=== PATIENT | male | born 1980 | race Caucasian/White ===

== ENCOUNTER 2016-08-08 03:36 | Emergency (ER) | payer SELFPAY ==
[~2016-08-08] VITALS: Ht 167.6 cm; Wt 65.0 kg
[2016-08-08] MEDS ORDERED: HALOPERIDOL 5 MG INJ ONE (03:43)
[2016-08-08] MEDS ORDERED: DIPHENHYDRAMINE 50 MG INJ ONE (03:43)
[2016-08-08] MEDS ORDERED: LORAZEPAM 2 MG INJ ONE (03:44)
[2016-08-08] MEDS ORDERED: SOD CHLORIDE 0.9% 1,000 ML IV STA (03:50)
[2016-08-08 03:57] VITALS: Ht 167.6 cm; Wt 65.0 kg
[2016-08-08] MEDS ORDERED: LORAZEPAM 2 MG INJ IM ONE (04:00)
[2016-08-08] MEDS ORDERED: DIPHENHYDRAMINE 50 MG INJ IM ONE (04:00)
[2016-08-08] MEDS ORDERED: HALOPERIDOL 5 MG INJ IM ONE (04:00)
[2016-08-08 04:55] LABS: ADD SCAN DIFF NO
[2016-08-08 04:56] LABS: ADD UMIC YES; BASOPHILS % 0.3 % (0.0-2.0); EOSINOPHILS % 0.3 % (0.0-7.0); HEMOGLOBIN 12.8 g/dl (14.0-18.0); LYMPHOCYTES # 0.7 10^3/ul (0.8-2.9); LYMPHOCYTES % 11.5 % (15.0-51.0); MEAN CORPUSCULAR HEMOGLOBIN 29.8 pg (29.0-33.0); MEAN CORPUSCULAR HGB CONC 34.6 g/dl (32.0-37.0); MONOCYTE # 0.6 10^3/ul (0.3-0.9); MONOCYTES % 9.6 % (0.0-11.0); NEUTROPHILS % 78.1 % (39.0-77.0); PLATELET COUNT 216 10^3/UL (140-415); RED CELL DISTRIBUTION WIDTH 13.4 % (11.5-14.5); URINE BILIRUBIN (Dip) NEGATIVE (NEGATIVE); URINE BLOOD (Dip) TRACE (NEGATIVE); URINE COLOR LT. YELLOW (YELLOW); URINE GLUCOSE (Dip) NEGATIVE (NEGATIVE); URINE KETONES (Dip) 15 (NEGATIVE); URINE LEUKOCYTE ESTERASE (Dip) NEGATIVE (NEGATIVE); URINE NITRITE (Dip) NEGATIVE (NEGATIVE); URINE TOTAL PROTEIN (Dip) TRACE (NEGATIVE); URINE UROBILINOGEN (Dip) 1.0 E.U./dL (0.1-1.0); WHITE BLOOD COUNT 6.4 10^3/ul (4.8-10.8)
[2016-08-08 06:01] LABS: BARBITURATES NEGATIVE (NEGATIVE); BENZODIAZEPINES NEGATIVE (NEGATIVE); CANNABINOIDS NEGATIVE (NEGATIVE); COCAINE NEGATIVE (NEGATIVE); OPIATES NEGATIVE (NEGATIVE)
--- NOTE | 2016-08-08 06:04 | ERA ---
ER Documentation Chief Complaint Date/Time DATE: 08/08/16 TIME: 06:03 Chief Complaint ALOC HPI 36-year-old male acting bizarrely. Denies any fevers or chills. Denies nausea vomiting. Denies any other current complaints. Patient seems to have a psychiatric history, but refused to ask questions. ROS All systems reviewed and are negative except as per history of present illness. Allergies Allergies: Coded Allergies: No Known Allergy (Unverified , 08/08/16) PMhx/Soc Smoking Status: Unknown if ever smoked Physical Exam Vitals Vital Signs Date Time Temp Pulse Resp B/P Pulse Ox O2 Delivery O2 Flow Rate FiO2 08/08/16 05:30 98.9 99 12 96/56 100 08/08/16 05:15 96.9 92 16 98/56 100 08/08/16 05:00 99.1 98 16 97/55 100 08/08/16 04:45 97.9 99 20 91/55 100 08/08/16 04:30 98.7 106 22 83/46 100 Room Air 08/08/16 04:30 98.7 105 22 89/45 100 08/08/16 04:15 98.6 106 22 102/58 99 08/08/16 04:00 98.6 118 22 118/99 99 08/08/16 03:57 97.6 133 28 127/72 100 Physical Exam Const: [] Head: Atraumatic Eyes: Normal Conjunctiva ENT: Normal External Ears, Nose and Mouth. Neck: Full range of motion..~ No meningismus. Resp: Clear to auscultation bilaterally Cardio: Regular rate and rhythm, no murmurs Abd: Soft, non tender, non distended. Normal bowel sounds Skin: No petechiae or rashes Back: No midline or flank tenderness Ext: No cyanosis, or edema Neur: Awake and alert Psych: Normal Mood and Affect Result Diagram: 08/08/16 0430 Results 24 hrs Laboratory Tests Test 08/08/16 04:30 White Blood Count 6.410^3/ul Red Blood Count 4.3010^6/ul Hemoglobin 12.8g/dl Hematocrit 37.0% Mean Corpuscular Volume 86.0fl Mean Corpuscular Hemoglobin 29.8pg Mean Corpuscular Hemoglobin Concent 34.6g/dl Red Cell Distribution Width 13.4% Platelet Count 12259^3/UL Mean Platelet Volume 10.0fl Neutrophils % 78.1% Lymphocytes % 11.5% Monocytes % 9.6% Eosinophils % 0.3% Basophils % 0.3% Nucleated Red Blood Cells % 0.0/100WBC Neutrophils # 5.010^3/ul Lymphocytes # 0.710^3/ul Monocytes # 0.610^3/ul Eosinophils # 0.010^3/ul Basophils # 0.010^3/ul Nucleated Red Blood Cells # 0.010^3/ul Urine Color LT. YELLOW Urine Clarity CLEAR Urine pH 6.0 Urine Specific [place] 1.025 Urine Ketones 15 Urine Nitrite NEGATIVE Urine Bilirubin NEGATIVE Urine Urobilinogen 1.0 E.U./dL Urine Leukocyte Esterase NEGATIVE Urine Microscopic RBC Pending Urine Microscopic WBC Pending Urine Hemoglobin TRACE Urine Glucose NEGATIVE% Urine Total Protein TRACE Urine Opiates Screen NEGATIVE Urine Barbiturates NEGATIVE Urine Amphetamines Screen POSITIVE Urine Benzodiazepines Screen NEGATIVE Urine Cocaine Screen NEGATIVE Urine Cannabinoids NEGATIVE Current Medications Medications (Trade) Dose Ordered Sig/Lopez Route PRN Reason Start Time Stop Time Status Last Admin Dose Admin Haloperidol (Haldol) 5 mg ONCE ONCE IM 08/08/16 04:00 08/08/16 04:01 DC 08/08/16 03:57 Lorazepam (Ativan) 2 mg ONCE ONCE IM 08/08/16 04:00 08/08/16 04:01 DC 08/08/16 03:57 Diphenhydramine HCl 50 mg 50 mg ONCE ONCE IM 08/08/16 04:00 08/08/16 04:01 DC 08/08/16 03:57 Sodium Chloride (NS) 1,000 ml @ 1,000 mls/hr Q1H STAT IV 08/08/16 03:50 08/08/16 04:49 DC 08/08/16 04:11 Procedures/MDM Patient's behavioral symptoms have stabilized while in the department. Patient is medically cleared and appropriate for psychiatric evaluation and work up. No e/o neurologic, toxic, infectious, or metabolic cause. Currently pending evaluation by PET team Departure Diagnosis: Primary Impression: Acute psychosis Condition: Stable NARESH DICKSON August 08, 2016 06:04
[2016-08-08 06:05] LABS: BACTERIA,URINE OCCASIONAL; SQUAMOUS EPITHELIAL CELL,UR OCCASIONAL; URINE RBCS 0-2 /HPF (0)
[2016-08-08 06:09] LABS: ACETAMINOPHEN < 10.0 ug/ml (10.0-30.0); ALANINE AMINOTRANSFERASE 52 IU/L (13-69); ALBUMIN 3.7 g/dl (3.3-4.9); ALBUMIN/GLOBULIN RATIO 1.37; ALKALINE PHOSPHATASE 70 IU/L (42-121); ANION GAP 17 (8-16); ASPARTATE AMINO TRANSFERASE 50 IU/L (15-46); BILIRUBIN,INDIRECT 0.6 mg/dl (0-1.1); BILIRUBIN,TOTAL 0.6 mg/dl (0.2-1.3); BLOOD UREA NITROGEN 13 mg/dl (7-20); CALCIUM 8.7 mg/dl (8.4-10.2); CARBON DIOXIDE 23 mmol/L (21-31); CHLORIDE 105 mmol/L (97-110); CREATININE 1.07 mg/dl (0.61-1.24); ETHANOL < 10.0 mg/dl; GLUCOSE 114 mg/dl (70-220); POTASSIUM 3.2 mmol/L (3.5-5.1); SALICYLATE < 1.0 mg/dl (5.0-30.0); SODIUM 142 mmol/L (135-144); TOTAL PROTEIN 6.4 g/dl (6.1-8.1)
--- NOTE | 2016-08-08 11:42 | PSY ---
Date/Time of Note Date/Time of Note DATE: 08/08/16 TIME: 11:41 Psychiatric Subjective Eval Consent Pt consented to telemedicine: Yes Subjective Evaluation Chief Complaint: ALOC History of present illness 36 yo male BIB paramedics due to acting bizarre and aggressively at 10/03 store. Pt is in restraints, refused to sepak to me. Not able to comeplte the eval. Medical history Problems Medical Problems: (1) Acute psychosis Status: Acute Allergies: Coded Allergies: No Known Allergy (Unverified , 08/08/16) Psychiatric Objective Eval Mental Status Examination: Laboratory Results Laboratory Tests Test 08/08/16 04:30 White Blood Count 6.410^3/ul Red Blood Count 4.3010^6/ul Hemoglobin 12.8g/dl Hematocrit 37.0% Mean Corpuscular Volume 86.0fl Mean Corpuscular Hemoglobin 29.8pg Mean Corpuscular Hemoglobin Concent 34.6g/dl Red Cell Distribution Width 13.4% Platelet Count 09682^3/UL Mean Platelet Volume 10.0fl Neutrophils % 78.1% Lymphocytes % 11.5% Monocytes % 9.6% Eosinophils % 0.3% Basophils % 0.3% Nucleated Red Blood Cells % 0.0/100WBC Neutrophils # 5.010^3/ul Lymphocytes # 0.710^3/ul Monocytes # 0.610^3/ul Eosinophils # 0.010^3/ul Basophils # 0.010^3/ul Nucleated Red Blood Cells # 0.010^3/ul Urine Color LT. YELLOW Urine Clarity CLEAR Urine pH 6.0 Urine Specific [place] 1.025 Urine Ketones 15 Urine Nitrite NEGATIVE Urine Bilirubin NEGATIVE Urine Urobilinogen 1.0 E.U./dL Urine Leukocyte Esterase NEGATIVE Urine Microscopic RBC 0-2/HPF Urine Microscopic WBC 0-2/HPF Urine Squamous Epithelial Cells OCCASIONAL Urine Amorphous Urates FEW Urine Bacteria OCCASIONAL Urine Hemoglobin TRACE Urine Glucose NEGATIVE% Urine Total Protein TRACE Sodium Level 142mmol/L Potassium Level 3.2mmol/L Chloride Level 105mmol/L Carbon Dioxide Level 23mmol/L Anion Gap 17 Blood Urea Nitrogen 13mg/dl Creatinine 1.07mg/dl Glucose Level 114mg/dl Calcium Level 8.7mg/dl Total Bilirubin 0.6mg/dl Direct Bilirubin 0.00mg/dl Indirect Bilirubin 0.6mg/dl Aspartate Amino Transf (AST/SGOT) 50IU/L Alanine Aminotransferase (ALT/SGPT) 52IU/L Alkaline Phosphatase 70IU/L Total Protein 6.4g/dl Albumin 3.7g/dl Globulin 2.70g/dl Albumin/Globulin Ratio 1.37 Salicylates Level < 1.0mg/dl Urine Opiates Screen NEGATIVE Acetaminophen Level < 10.0ug/ml Urine Barbiturates NEGATIVE Urine Amphetamines Screen POSITIVE Urine Benzodiazepines Screen NEGATIVE Urine Cocaine Screen NEGATIVE Urine Cannabinoids NEGATIVE Ethyl Alcohol Level < 10.0mg/dl LYNDSEY MACK MD August 08, 2016 11:42
--- NOTE | 2016-08-08 23:27 | QN ---
Documentation Comment Evaluated by telemetry psychiatry. Found to be dischargeable. I agree with this. One patient was informed by a psychiatrist, patient declined he was suicidal. Both a psychiatrist and I discussed this at great length. We both for the patient's malingering. He will be discharged home. NARESH DICKSON. August 08, 2016 23:27
[2016-08-08 23:41] VITALS: BP 112/80; PULSE 83; RESP 15; TEMP 98.9
--- NOTE | 2016-08-08 23:51 | PSY ---
Date/Time of Note Date/Time of Note DATE: 08/08/16 TIME: 23:37 Psychiatric Subjective Eval Consent Pt consented to telemedicine: Yes Subjective Evaluation Patient location: emergency Chief Complaint: ALOC Reason for consult: meth intoxication History of present illness patient is a 36 yo male homeless with PPH Of methamphetamine abuse, brought in to the ER confused and agitated, had to be medicated with haldol and ativan and then refused to talk . Now he is willing to talk very hostile and irritable, states that he has been admitted to psych unit before , denies any past suicidal attempt , denies feeling depressed or anxious , denies any manic or psychotic symptoms. Once i told patient that he will be discharged he said that he was suicidal and he will kill himself if he is discharged . Hospitalization: yes Family History denies Medical history Problems Medical Problems: (1) Acute psychosis Status: Acute Allergies: Coded Allergies: No Known Allergy (Unverified , 08/08/16) Substance Abuse Substance abuse history: Yes (amphetamine ) Prior substance abuse treatmen: No Social History Marital status: single Level of education: hs DPA/Conservatorship: No Occupation/Long Term: unemployed Psychiatric Objective Eval Review of Systems: Review of Systems: Not Applicable Physical Examination: Physical Examination: Applicable Sleep: Insomnia Appetite: Adequate Energy: Adequate Interest: Adequate Mental Status Examination: Appearance: Disheveled Eye Contact: Good Psychomotor Activity: Normal Behavior: Hostile Speech: Clear AFFECT: Depressed Mood: Irritable Though Process: Linear Thought Content: Normal Suicidal: No Homicidal: No On 72 hour hold: No Orientation: x3 Cognition: Alert Insight: Intact Judgement: Intact Attention Span: Intact Laboratory Results Laboratory Tests Test 08/08/16 04:30 White Blood Count 6.410^3/ul Red Blood Count 4.3010^6/ul Hemoglobin 12.8g/dl Hematocrit 37.0% Mean Corpuscular Volume 86.0fl Mean Corpuscular Hemoglobin 29.8pg Mean Corpuscular Hemoglobin Concent 34.6g/dl Red Cell Distribution Width 13.4% Platelet Count 19263^3/UL Mean Platelet Volume 10.0fl Neutrophils % 78.1% Lymphocytes % 11.5% Monocytes % 9.6% Eosinophils % 0.3% Basophils % 0.3% Nucleated Red Blood Cells % 0.0/100WBC Neutrophils # 5.010^3/ul Lymphocytes # 0.710^3/ul Monocytes # 0.610^3/ul Eosinophils # 0.010^3/ul Basophils # 0.010^3/ul Nucleated Red Blood Cells # 0.010^3/ul Urine Color LT. YELLOW Urine Clarity CLEAR Urine pH 6.0 Urine Specific [place] 1.025 Urine Ketones 15 Urine Nitrite NEGATIVE Urine Bilirubin NEGATIVE Urine Urobilinogen 1.0 E.U./dL Urine Leukocyte Esterase NEGATIVE Urine Microscopic RBC 0-2/HPF Urine Microscopic WBC 0-2/HPF Urine Squamous Epithelial Cells OCCASIONAL Urine Amorphous Urates FEW Urine Bacteria OCCASIONAL Urine Hemoglobin TRACE Urine Glucose NEGATIVE% Urine Total Protein TRACE Sodium Level 142mmol/L Potassium Level 3.2mmol/L Chloride Level 105mmol/L Carbon Dioxide Level 23mmol/L Anion Gap 17 Blood Urea Nitrogen 13mg/dl Creatinine 1.07mg/dl Glucose Level 114mg/dl Calcium Level 8.7mg/dl Total Bilirubin 0.6mg/dl Direct Bilirubin 0.00mg/dl Indirect Bilirubin 0.6mg/dl Aspartate Amino Transf (AST/SGOT) 50IU/L Alanine Aminotransferase (ALT/SGPT) 52IU/L Alkaline Phosphatase 70IU/L Total Protein 6.4g/dl Albumin 3.7g/dl Globulin 2.70g/dl Albumin/Globulin Ratio 1.37 Salicylates Level < 1.0mg/dl Urine Opiates Screen NEGATIVE Acetaminophen Level < 10.0ug/ml Urine Barbiturates NEGATIVE Urine Amphetamines Screen POSITIVE Urine Benzodiazepines Screen NEGATIVE Urine Cocaine Screen NEGATIVE Urine Cannabinoids NEGATIVE Ethyl Alcohol Level < 10.0mg/dl Assessment and Plan Assessment/Diagnosis [place] I: amphetamine abuse amphetamine induced psychosis in remission [place] II: deferred [place] III: as per record [place] IV: homeless [place] V: gaf 55 Recommendation/Plan Follow-up/Disposition In my opinion,for this patient, outpatient care is the least restrictive option. Based on available evidence, this condition CAN be safely treated at a lower level of care effective today. Patient is stable without clear and convincing evidence of imminent danger due to mental illness that requires acute inpatient psychiatric care as the least restrictive alternative. please refer patient to outpatient mental health clinic for medication management and pscyhotherapy and drug rehab VIKKI VASQUEZ MD August 08, 2016 23:47
== END 2016-08-08 23:52 | disposition home or self-care (01) ==
LOC: E/R 03:36
DX: F29 Unspecified psychosis not due to a substance or known physiological condition (principal); R40.2142 Coma scale, eyes open, spontaneous, at arrival to emergency department; R40.2252 Coma scale, best verbal response, oriented, at arrival to emergency department; R40.2362 Coma scale, best motor response, obeys commands, at arrival to emergency department
CPT/HCPCS: 36415; 80053; 80306; 80307; 81001; 85025; 93005; 96372; 99284; J1200; J1630; J2060; J7030; P9612; 81003

== ENCOUNTER 2018-09-22 20:08 | Inpatient (IN) | payer MEDICAID ==
[~2018-09-22] VITALS: Ht 170.2 cm; Wt 88.3 kg
[2018-09-22] MEDS ORDERED: KETOROLAC 15 MG INJ IV STA (21:00)
[2018-09-22] MEDS ORDERED: SOD CHLORIDE 0.9% 1,000 ML IV ONE (21:00)
[2018-09-22] MEDS ORDERED: PIPER-TAZO 3.375 GM IV (PMX) 100 ML IVPB ONE (21:00)
[2018-09-22] MEDS ORDERED: VANCOMYCIN 1 GM (PMX) 250 ML IVPB ONE (21:00)
[2018-09-22] MEDS ORDERED: SOD CHLORIDE 0.9% 100 ML ONE (22:06)
[2018-09-22] MEDS ORDERED: IOHEXOL 300MG/ML 150 ML BTL ONE (22:06)
[2018-09-22] MEDS ORDERED: IBUP-1542 PO (23:02)
[2018-09-22] MEDS ORDERED: CLIN300C10 PO (23:02)
--- NOTE | 2018-09-23 00:28 | ERD ---
ER Documentation Chief Complaint Chief Complaint R THIGH PAIN X'S 2 DAYS. SEEN FOR SAME 2 DAYS AGO HPI 38-year-old male presents to the emergency department with complaints of redness and swelling and pain to his right buttock for the past 2 days. He states he went to [facility] yesterday and was prescribed antibiotics but has not been taking them. Symptoms have overall worsened. Reports 9/10 pain which is constant and worse with walking. He denies any fevers, nausea, vomiting, diarrhea, or other symptoms at this time. ROS All systems reviewed and are negative except as per history of present illness. Medications Home Meds Active Scripts Ibuprofen* (Motrin*) 600 Mg Tab, 600 MG PO Q6, #30 TAB Prov:NARESH HAYES PA-C 09/22/18 Clindamycin Hcl* (Clindamycin Hcl*) 300 Mg Capsule, 300 MG PO TID for 10 Days, CAP Prov:NARESH HAYES PA-C 09/22/18 Allergies Allergies: Coded Allergies: diphenhydramine (Verified Allergy, Unknown, 09/22/18) PMhx/Soc Medical and Surgical Hx: pt denies Medical Hx, pt denies Surgical Hx Hx Alcohol Use: No (denies) Hx Substance Use: No (denies) Hx Tobacco Use: No (denies) Smoking Status: Never smoker FmHx Family History: No diabetes Physical Exam Vitals Vital Signs Date Temp Pulse Resp B/P (MAP) Pulse Ox O2 O2 Flow FiO2 Time Delivery Rate 09/22/18 99.6 94 16 133/79 96 20:10 (97) Physical Exam Const: No acute distress Head: Atraumatic Eyes: Normal Conjunctiva ENT: Normal External Ears, Nose and Mouth. Neck: Full range of motion. No meningismus. Resp: Clear to auscultation bilaterally Cardio: Regular rate and rhythm, no murmurs Skin: Significant erythema and induration noted to the left buttock extending into the left hip. Patient has tenderness palpation and warmth of the area. There is no lymphatic streaking. No necrosis noted. No crepitus on palpation. Ext: No cyanosis, or edema Neur: Awake and alert Psych: Normal Mood and Affect Result Diagram: 09/22/18210809/22/182108 Results 24 hrs Laboratory Tests Test 09/22/18 21:09 White Blood Count 7.0 10^3/ul Red Blood Count 3.92 10^6/ul Hemoglobin 11.5 g/dl Hematocrit 33.3 % Mean Corpuscular Volume 84.9 fl Mean Corpuscular Hemoglobin 29.3 pg Mean Corpuscular Hemoglobin Concent 34.5 g/dl Red Cell Distribution Width 13.1 % Platelet Count 179 10^3/UL Mean Platelet Volume 10.0 fl Immature Granulocytes % 0.100 % Neutrophils % 58.9 % Lymphocytes % 26.9 % Monocytes % 10.9 % Eosinophils % 2.9 % Basophils % 0.3 % Nucleated Red Blood Cells % 0.0 /100WBC Immature Granulocytes # 0.010 10^3/ul Neutrophils # 4.1 10^3/ul Lymphocytes # 1.9 10^3/ul Monocytes # 0.8 10^3/ul Eosinophils # 0.2 10^3/ul Basophils # 0.0 10^3/ul Nucleated Red Blood Cells # 0.0 10^3/ul Sodium Level 140 mmol/L Potassium Level 3.4 mmol/L Chloride Level 105 mmol/L Carbon Dioxide Level 29 mmol/L Anion Gap 6 Blood Urea Nitrogen 19 mg/dl Creatinine 0.83 mg/dl Est Glomerular Filtrat Rate mL/min > 60 mL/min Glucose Level 125 mg/dl Calcium Level 7.9 mg/dl Total Bilirubin 0.5 mg/dl Direct Bilirubin 0.00 mg/dl Indirect Bilirubin 0.5 mg/dl Aspartate Amino Transf (AST/SGOT) 500 IU/L Alanine Aminotransferase (ALT/SGPT) 180 IU/L Alkaline Phosphatase 57 IU/L Total Protein 6.3 g/dl Albumin 3.4 g/dl Globulin 2.90 g/dl Albumin/Globulin Ratio 1.17 Current Medications Medications Dose Sig/Lopez Start Time Status Last (Trade) Ordered Route PRN Stop Time Admin Dose Reason Admin Sodium 1,000 ml @ Q1H ONCE 09/22/18 DC 09/22/18 Chloride 1,000 mls/hr IV 21:00 21:35 09/22/18 21:59 Piperacillin 100 ml @ ONCE ONCE 09/22/18 DC 09/22/18 Sod/ 200 mls/hr IVPB 21:00 21:35 Tazobactam 09/22/18 21:29 Sod Vancomycin 250 ml @ ONCE ONCE 09/22/18 DC 6/30/19 HCl 125 mls/hr IVPB 21:00 22:23 09/22/18 22:59 Ketorolac 15 mg ONCE STAT 09/22/18 DC 09/22/18 Tromethamine IV 21:00 21:35 (Toradol) 09/22/18 21:02 IV Flush 10 ml STK-MED 09/22/18 DC 09/22/18 (NS 10 ml) ONCE .ROUTE 22: 22:17 09/22/18 22:07 Sodium 100 ml @ ud STK-MED 09/22/18 DC 09/22/18 Chloride ONCE .ROUTE 22: 22:18 09/22/18 22:07 Iohexol 150 ml STK-MED 09/22/18 DC 09/22/18 (Omnipaque ONCE .ROUTE : 22: 300mg/ ml) 09/22/18 22:07 Procedures/MDM 38-year-old male presenting to the emergency department with extensive cellulitis with induration of the right buttock extending to the right hip. Patient is homeless and is unable to receive his prescriptions as an outpatient. Patient was immediately placed on a stretcher and IV Zosyn, IV vancomycin, IV Toradol was administered. There is no evidence to suggest sepsis although due to patient's history and physical examination, we will admit for IV antibiotics. I did speak to the attending ED physician, Dr. Chinmay Cole, who is in agreement with plan for admission and further facilitated the admission process. My medical decision making was shared with the patient and he understands and agrees with plan for admission. Departure Diagnosis: Primary Impression: Abscess of left buttock Condition: Fair Patient Instructions: Cellulitis Referrals: [facility] YOU HAVE RECEIVED A MEDICAL SCREENING EXAM AND THE RESULTS INDICATE THAT YOU DO NOT HAVE A CONDITION THAT REQUIRES URGENT TREATMENT IN THE EMERGENCY DEPARTMENT. FURTHER EVALUATION AND TREATMENT OF YOUR CONDITION CAN WAIT UNTIL YOU ARE SEEN IN YOUR DOCTORS OFFICE WITHIN THE NEXT 1-2 DAYS. IT IS YOUR RESPONSIBILITY TO MAKE AN APPOINTMENT FOR FOLOW-UP CARE. IF YOU HAVE A PRIMARY DOCTOR --you should call your primary doctor and schedule an appointment IF YOU DO NOT HAVE A PRIMARY DOCTOR YOU CAN CALL OUR PHYSICIAN REFERRAL HOTLINE AT IF YOU CAN NOT AFFORD TO SEE A PHYSICIAN YOU CAN CHOSE FROM THE FOLLOWING COUNTS INCLUDE 234 BEDS AT THE [facility] [address] [place] [facility] [address] [facility] [address] [facility] [address] [facility]. [facility] [address] [facility]. [facility] [address] Additional Instructions: Call your primary care doctor TOMORROW for an appointment during the next 1-2 days.See the doctor sooner or return here if your condition worsens before your appointment time. NARESH HAYES PA-C Sep 23, 2018 00:28
--- NOTE | 2018-09-23 00:33 | HP ---
Date/Time of Note Date/Time of Note DATE: 09/23/18 TIME: 00:33 Assessment/Plan VTE Prophylaxis SCD applied (from Nsg): Yes SCD contraindicated: low risk/ambulating Pharmacological prophylaxis: NA/contraindicated Pharm contraindication: low risk/ambulating Lines/Catheters IV Catheter Type (from Nrsg): Saline Lock Assessment/Plan Hospital Course This is a 38-year male being admitted to the [facility] floor for: #1 buttock cellulitis: Vancomycin IV per pharmacy. Etiology of this is unknown, will check urine drug screen. CT of the pelvis was performed that did not show any signs of underlying abscess. Monitor closely. Social work/case management consult to assist with p.o. antibiotics prescription prior to discharge #2 transaminitis: Patient denies history of drug use or ethanol use. Will check urine drug screen, ethanol level. Will check right upper quadrant ultrasound. Check hepatitis panel. #3 normocytic anemia: We will check iron stores #4 DVT GI prophylaxis: SCDs, no GI prophylaxis indicated Further treatment strategy will be implemented as per the clinical course. Result Diagram: 09/22/18210809/22/182108 Results 24hrs Laboratory Tests Test 09/22/18 21:09 White Blood Count 7.0 Red Blood Count 3.92 L Hemoglobin 11.5 L Hematocrit 33.3 L Mean Corpuscular Volume 84.9 Mean Corpuscular Hemoglobin 29.3 Mean Corpuscular Hemoglobin Concent 34.5 Red Cell Distribution Width 13.1 Platelet Count 179 Mean Platelet Volume 10.0 Immature Granulocytes % 0.100 Neutrophils % 58.9 Lymphocytes % 26.9 Monocytes % 10.9 Eosinophils % 2.9 Basophils % 0.3 Nucleated Red Blood Cells % 0.0 Immature Granulocytes # 0.010 Neutrophils # 4.1 Lymphocytes # 1.9 Monocytes # 0.8 Eosinophils # 0.2 Basophils # 0.0 Nucleated Red Blood Cells # 0.0 Sodium Level 140 Potassium Level 3.4 L Chloride Level 105 Carbon Dioxide Level 29 Anion Gap 6 Blood Urea Nitrogen 19 Creatinine 0.83 Est Glomerular Filtrat Rate mL/min > 60 Glucose Level 125 Calcium Level 7.9 L Total Bilirubin 0.5 Direct Bilirubin 0.00 Indirect Bilirubin 0.5 Aspartate Amino Transf (AST/SGOT) 500 H Alanine Aminotransferase (ALT/SGPT) 180 H Alkaline Phosphatase 57 Total Protein 6.3 Albumin 3.4 Globulin 2.90 Albumin/Globulin Ratio 1.17 HPI/ROS Admit Date/Time Admit Date/Time Hx of Present Illness Chief complaint: Swelling and redness of the right buttock This is a 38-year-old apparently homeless male presents to the emergency department with complaints of redness and swelling and pain to his right buttock for the past 2 days. He states he went to [facility] yesterday and was prescribed antibiotics but apparently was unable to get them filled due to him being homeless. Symptoms have overall worsened. Reports 9/10 pain which is constant and worse with walking. He denies any fevers, nausea, vomiting, diarrhea, or other symptoms at this time. Allergies: Benadryl Medications: None ROS Const: As per HPI Eyes : No pain discharge or redness or change in visual acuity ENT: No pain, sore throat, congestion, congestion, dysphagia or discharge Respiratory: No shortness of breath, cough, sputum, wheezing, or pleuritic pain Cardiovascular: No chest pain, palpitation, PND, or edema GI : no change in appetite, abdominal pain, nausea, vomiting, diarrhea, constip ation, or change in the color his stool Genitourinary: As per HPI Musculoskeletal: No joint pain, back pain, neck pain, restricted range of motion in neck or joints Skin: As per HPI Neuro: No headache, dizziness, syncope, seizure, focal weakness Endocrine: No polyuria, polydipsia, temperature intolerance Psych: No hallucination, depression, anxiety or suicidal ideation PMH/Family/Social Past Medical History Medical History: no pertinent history Coded Allergies: diphenhydramine (Verified Allergy, Unknown, 09/22/18) Past Surgical History Past Surgical Hx: no surgical history Family History Significant Family History: no pertinent family hx Social History Alcohol Use: none Smoking Status: Never smoker Drug Use: none Exam/Review of Systems Vital Signs Vitals Vital Signs Date Temp Pulse Resp B/P (MAP) Pulse Ox O2 O2 Flow FiO2 Time Delivery Rate 09/22/18 99.6 94 16 133/79 96 20:10 (97) Exam Exam General: Patient is currently lying in bed in no acute distress HEENT: Atraumatic, normocephalic. The pupils are equal, round and reactive. Extraocular motor are intact Neck: Supple with full range of motion. No rigidity or meningismus Chest: Nontender Lungs: Clear to auscultation bilaterally no crackles rales or wheezing Heart: Normal S1-S2, Regular rhythm and rate. No murmur, S3, or S4 Abdomen: Soft , nontender, nondistended , bowel sounds are present. No guarding no rebound tenderness , No masses or organomegaly. No costovertebral temporal angle mass Extremities: Normal to inspection, no edema no cyanosis Skin: Right buttock area of induration, swelling and warmth noted. No fluctuance noted. Multiple tattoos Neurologic: Normal mental status, speech normal, cranial nerves II through XII are intact, motor and sensory are intact, Additional Comments PROCEDURE: CT Pelvis with contrast. CLINICAL INDICATION: Left buttock pain, possible abscess TECHNIQUE: CT scan of the pelvis was performed on a multi-detector high- resolution CT scanner following intravenous infusion of 100 cc of Omnipaque-300. Coronal and sagittal reformatted images were obtained from the axial source images. Images were reviewed on a high-resolution PACS workstation. The total exam CTDI equals number mGy and the total exam DLP equals number mGy-cm. DICOM images are available. 3-D reconstructions were not performed on the r adiologist's workstation and evaluated for fractures. One or more of the following dose reduction techniques were utilized: 1.) Automated exposure control 2.) Adjustment of the mA +/- kV according to patient's size 3.) Use of iterative reconstruction technique. COMPARISON: None. FINDINGS: Bony structures : No clinically significant abnormalities. Pelvic colon: Normal in caliber and course. No evidence of inflammatory change. Pelvic small bowel: Normal in caliber and course. Urinary bladder: Normal in size and contour without visible wall thickening. Reproductive structures: Unremarkable. Vascular structures: Unremarkable. Superficial structures: There is extensive subcutaneous edema or bruising along the lateral right thigh and buttock. No focal abnormal fluid collection is evident IMPRESSION: 1. Bruising or edema in the subcutaneous adipose tissue of the lateral right thigh and hip, without evidence of focal abscess at this location or elsewhere around the pelvis. 2. Otherwise unremarkable pelvis. RPTAT:AAJJ Physician Norma Date Time Electronically viewed and signed by Physician Norma on 09/22/2018 22:44 GW/ CC: NARESH HAYES PA-C [id number] SU SWANSON Sep 23, 2018 00:33
[2018-09-23] MEDS ORDERED: DOCUSATE SODIUM 100 MG CAP PO PRN (01:00)
[2018-09-23] MEDS ORDERED: BISACODYL (EC) 5 MG TAB PO PRN (01:00)
[2018-09-23] MEDS ORDERED: VANCOMYCIN IV PER PHARMACY XX SCH (01:00)
[2018-09-23] MEDS ORDERED: ONDANSETRON 4 MG INJ IV PRN (01:00)
[2018-09-23] MEDS ORDERED: NACL 0.9% 3 ML SYG IV SCH (01:00)
[2018-09-23 01:01] VITALS: Ht 170.2 cm; Wt 88.3 kg
[2018-09-23 01:09] VITALS: BP 137/67; PULSE 90; RESP 18
[2018-09-23] MEDS: VANCOMYCIN 1 GM 250 ML IVPB SCH ×3 (05:52→21:37)
[2018-09-23 07:48] VITALS: BP 97/59; PULSE 77; RESP 20
[2018-09-23] MEDS: HYDROCODONE/APAP (5/325) TAB PO PRN ×3 (09:09→21:36)
[2018-09-23] MEDS: ACETAMINOPHEN 325 MG TAB PO PRN (11:45)
[2018-09-23 14:37] VITALS: BP 119/64; RESP 20
--- NOTE | 2018-09-23 15:03 | PN ---
Date/Time of Note Date/Time of Note DATE: 09/23/18 TIME: 14:58 Assessment/Plan VTE Prophylaxis Risk score (from [facility])>0 risk: 1 SCD applied (from [facility]): Yes Pharmacological prophylaxis: NA/contraindicated Pharm contraindication: low risk/ambulating Lines/Catheters IV C[facility]ter Type (from [facility] Saline Lock Assessment/Plan Hospital Course Assessment/Plan: 1. Buttock Cellulitis. - continue on abx. awaiting wound care. -Awaiting wound care consult. - CT of the pelvis was performed that did not show any signs of underlying abscess. - Patient reportedly did not receive abx from his previous hospital. electrical linesworker to follow. 2. Transaminitis. - Monitor trend. Patient noted with Hep Bs antibody (+) 3. Anemia. - Iron panel pending. Monitor H&H Discussed POC with Dr. Osman Result Diagram: 09/22/18210809/22/182108 Results 24hrs Laboratory Tests Test 09/22/18 21:09 09/23/18 05:12 White Blood Count 7.0 Red Blood Count 3.92 L Hemoglobin 11.5 L Hematocrit 33.3 L Mean Corpuscular Volume 84.9 Mean Corpuscular Hemoglobin 29.3 Mean Corpuscular Hemoglobin Concent 34.5 Red Cell Distribution Width 13.1 Platelet Count 179 Mean Platelet Volume 10.0 Immature Granulocytes % 0.100 Neutrophils % 58.9 Lymphocytes % 26.9 Monocytes % 10.9 Eosinophils % 2.9 Basophils % 0.3 Nucleated Red Blood Cells % 0.0 Immature Granulocytes # 0.010 Neutrophils # 4.1 Lymphocytes # 1.9 Monocytes # 0.8 Eosinophils # 0.2 Basophils # 0.0 Nucleated Red Blood Cells # 0.0 Sodium Level 140 Potassium Level 3.4 L Chloride Level 105 Carbon Dioxide Level 29 Anion Gap 6 Blood Urea Nitrogen 19 Creatinine 0.83 Est Glomerular Filtrat Rate mL/min > 60 Glucose Level 125 Calcium Level 7.9 L Total Bilirubin 0.5 Direct Bilirubin 0.00 Indirect Bilirubin 0.5 Aspartate Amino Transf (AST/SGOT) 500 H Alanine Aminotransferase (ALT/SGPT) 180 H Alkaline Phosphatase 57 Total Protein 6.3 Albumin 3.4 Globulin 2.90 Albumin/Globulin Ratio 1.17 Ethyl Alcohol Level < 10.0 H Hepatitis B Surface Antigen NEGATIVE Hepatitis B Surface Antibody POSITIVE H Hepatitis B Core Total Antibody NEGATIVE Hepatitis C Antibody NEGATIVE Subjective 24 Hr Interval Summary Free Text/Dictation He reports having some right buttock pain. Reports minimal drainage at that area. Exam/Review of Systems Exam Vitals Vital Signs Date Temp Pulse Resp B/P (MAP) Pulse Ox O2 O2 Flow FiO2 Time Delivery Rate 09/23/18 98.3 77 20 97/59 (72) 97 Room Air 07:48 Constitutional: alert, oriented Psych: nl mood/affect Head: normocephalic Neck: supple, non-tender Respiratory: clear to auscultation Cardiovascular: regular rate and rhythm Gastrointestinal: soft, non-tender Neurological: MEAT CURER II-XII intact, nl mental status, nl speech Skin: other (right buttock skin tear and redness/swelling ) Results Results 24hrs Laboratory Tests Test 09/22/18 21:09 09/23/18 05:12 White Blood Count 7.0 Red Blood Count 3.92 L Hemoglobin 11.5 L Hematocrit 33.3 L Mean Corpuscular Volume 84.9 Mean Corpuscular Hemoglobin 29.3 Mean Corpuscular Hemoglobin Concent 34.5 Red Cell Distribution Width 13.1 Platelet Count 179 Mean Platelet Volume 10.0 Immature Granulocytes % 0.100 Neutrophils % 58.9 Lymphocytes % 26.9 Monocytes % 10.9 Eosinophils % 2.9 Basophils % 0.3 Nucleated Red Blood Cells % 0.0 Immature Granulocytes # 0.010 Neutrophils # 4.1 Lymphocytes # 1.9 Monocytes # 0.8 Eosinophils # 0.2 Basophils # 0.0 Nucleated Red Blood Cells # 0.0 Sodium Level 140 Potassium Level 3.4 L Chloride Level 105 Carbon Dioxide Level 29 Anion Gap 6 Blood Urea Nitrogen 19 Creatinine 0.83 Est Glomerular Filtrat Rate mL/min > 60 Glucose Level 125 Calcium Level 7.9 L Total Bilirubin 0.5 Direct Bilirubin 0.00 Indirect Bilirubin 0.5 Aspartate Amino Transf (AST/SGOT) 500 H Alanine Aminotransferase (ALT/SGPT) 180 H Alkaline Phosphatase 57 Total Protein 6.3 Albumin 3.4 Globulin 2.90 Albumin/Globulin Ratio 1.17 Ethyl Alcohol Level < 10.0 H Hepatitis B Surface Antigen NEGATIVE Hepatitis B Surface Antibody POSITIVE H Hepatitis B Core Total Antibody NEGATIVE Hepatitis C Antibody NEGATIVE Medications Medication Current Medications Vancomycin HCl (Vanco Iv Per Pharmacy) VANCOMYCIN PER PHARMACY PER PROTOCOL XX ; Start 09/23/18 at 01:00 IV Flush (NS 3 ml) 3 ml PER PROTOCOL IV ; Start 09/23/18 at 01:00 Ondansetron HCl (Zofran Inj) 4 mg Q6H PRN IV NAUSEA/VOMITING; Start 09/23/18 at 01:00 Acetaminophen (Tylenol Tab) 650 mg Q6H PRN PO .PAIN 1-3 OR TEMP Last administered on 09/23/18at 11:45; Admin Dose 650 MG; Start 09/23/18 at 01:00 Acetaminophen/ Hydrocodone Bitart ([place] (5/325)) 1 tab Q6H PRN PO .MOD PAIN 4- 6 Last administered on 09/23/18at 09:09; Admin Dose 1 TAB; Start 09/23/18 at 01:00 Docusate Sodium (Colace) 100 mg Q12H PRN PO .CONSTIPATION; Start 09/23/18 at 01:00 Bisacodyl (Dulcolax) 5 mg DAILY PRN PO .CONSTIPATION; Start 09/23/18 at 01:00 Vancomycin HCl 250 ml @ 125 mls/hr Q8H IVPB Last administered on 09/23/18at 13:39; Admin Dose 125 MLS/HR; Start 09/23/18 at 06:00 Miscellaneous Information (*Rx Drug Level Order Reminder*) PERFECTO TR 0500 ONCE XX ; Start 09/24/18 at 05:00; Stop 09/24/18 at 05:01 GUSTAVO BURNS NP Sep 23, 2018 15:03
--- NOTE | 2018-09-23 17:59 | CONS ---
DATE OF ADMISSION: 09/22/2018 DATE OF CONSULTATION: 09/23/2018 TYPE OF CONSULTATION: Infectious disease. REASON FOR CONSULTATION: Antibiotic management. HISTORY OF PRESENT ILLNESS: Ethan Garcia is a 38-year-old male who comes in with right thi gh pain for 2 days. He presents to the emergency room with complaints of redness and swelling and pa in in the right buttock for the last 2 days. He went to [facility] yesterday and was prescrib ed antibiotics but did not take them. Symptoms have overall worsened. He reports 9/10 pain which is constant and worse with walking. Denies fever or chills. Denies nausea, vomiting or diarrhea. Den ies dysuria, pyuria or hematuria. PAST MEDICAL HISTORY: He has no other significant past medical history. FAMILY HISTORY: Noncontributory. SOCIAL HISTORY: He does not smoke, drink or abuse drugs. ALLERGIES: DIPHENHYDRAMINE OR BENADRYL. MEDICATIONS: Per chart. REVIEW OF SYSTEMS: As noted per HPI. On admission, his white count was 7000 with 59% neutrophils, H and H of 11.5 and 33.3, platelet count 179,000. BUN and creatinine is 19/0.83, potassium 3.4 and glucose of 125. PHYSICAL EXAMINATION: GENERAL: He is a well-developed, well-nourished male in no acute distress. VITAL SIGNS: Stable. He is afebrile. SKIN: Without generalized rash. HEENT: Within normal limits. NECK: Supple. LYMPH NODES: None palpable. CHEST: Decreased breath sounds at bases. HEART: Without murmur or gallop. ABDOMEN: Soft, nontender without organosplenomegaly or masses. EXTREMITIES: No cyanosis, clubbing, or edema. He has significant erythema and induration of the lef t buttock extending into the left hip with tenderness to palpation and warmth in the area. He has no crepitus. HOSPITAL COURSE: White count 7.0 with 59% neutrophils, H and H 11.5 and, platelet count 179,000. BU N and creatinine as previously noted. Potassium is noted. The patient was started on vancomycin and Zosyn for possible abscess of the left buttock. The patient is homeless and unable to receive pres riptions as an outpatient. He was given Zosyn, IV vancomycin and Toradol. He did not appear to be s eptic. A pelvic CT scan showed bruising or edema in the subcutaneous adipose tissue of the lateral r ight thigh and hip without evidence of focal abscess at this location even though the issue was the l eft buttock pain; otherwise unremarkable pelvis. A liver ultrasound: No cholelithiasis or biliary d ilatation. No ascites. Pancreas is obscured. The patient may just have cellulitis as opposed to an abscess. He is on vancomycin. I believe he did receive some Zosyn, but currently he is only on van comycin. Blood culture was done. Wound culture was ordered. Wound consult was called. I will dict ate my findings to the hospitalist. Dictated By: ALECIA HOUSER MD, JD/NTS Conf#: [id number] DID#: [id number] CC: SU SWANSON MD;*EndCC*
[2018-09-23 20:32] VITALS: BP 137/74; PULSE 89; RESP 18
[2018-09-24 01:43] VITALS: BP 111/62; PULSE 84; RESP 18
[2018-09-24] MEDS: HYDROCODONE/APAP (5/325) TAB PO PRN ×3 (04:37→17:57)
[2018-09-24] MEDS: VANCOMYCIN 1 GM 250 ML IVPB SCH (06:35)
[2018-09-24 08:02] VITALS: BP 107/63; PULSE 67; RESP 18
--- NOTE | 2018-09-24 13:59 | PN ---
Date/Time of Note Date/Time of Note DATE: 09/24/18 TIME: 13:57 Assessment/Plan VTE Prophylaxis Risk score (from [facility]0 risk: 1 SCD applied (from Ns): Yes Pharmacological prophylaxis: NA/contraindicated Pharm contraindication: low risk/ambulating Lines/Catheters IV Catheter Type (from [facility]): Saline Lock Assessment/Plan Hospital Course Assessment/Plan: 1. Buttock Cellulitis. - continue on abx. awaiting wound care consultation - CT of the pelvis was performed that did not show any signs of underlying abscess. - Patient reportedly did not receive abx from his previous hospital. drop board worker to follow. 2. Transaminitis. - Monitor trend. Patient noted with Hep Bs antibody (+) 3. Anemia. - Iron panel pending. Monitor H&H 4. Homeless status -drop board worker to follow Disposition plan. Appears to be improving on antibiotics. Follow-up with social welfare administrator due to patient's reported homeless status. We will see if patient can receive antibiotic regimen prior to DC. Anticipate discharge within the next 24 hours if remains stable. Awaiting wound care consult. Discussed POC with Dr. Osman Result Diagram: 09/24/18 0457 09/24/18 0457 Results 24hrs Laboratory Tests Test 09/24/18 01:30 09/24/18 04:57 Urine Opiates Screen POSITIVE Urine Barbiturates NEGATIVE Urine Amphetamines Screen NEGATIVE Urine Benzodiazepines Screen NEGATIVE Urine Cocaine Screen NEGATIVE Urine Cannabinoids NEGATIVE White Blood Count 5.7 Red Blood Count 4.11 L Hemoglobin 12.1 L Hematocrit 35.4 L Mean Corpuscular Volume 86.1 Mean Corpuscular Hemoglobin 29.4 Mean Corpuscular Hemoglobin Concent 34.2 Red Cell Distribution Width 13.2 Platelet Count 201 Mean Platelet Volume 10.1 Immature Granulocytes % 0.200 Neutrophils % 53.7 Lymphocytes % 34.1 Monocytes % 8.1 Eosinophils % 3.7 Basophils % 0.2 Nucleated Red Blood Cells % 0.0 Immature Granulocytes # 0.010 Neutrophils # 3.0 Lymphocytes # 1.9 Monocytes # 0.5 Eosinophils # 0.2 Basophils # 0.0 Nucleated Red Blood Cells # 0.0 Sodium Level 140 Potassium Level 3.6 Chloride Level 107 Carbon Dioxide Level 26 Anion Gap 7 Blood Urea Nitrogen 9 # Creatinine 0.61 Est Glomerular Filtrat Rate mL/min > 60 Glucose Level 97 Hemoglobin A1c 5.0 Calcium Level 8.1 L Magnesium Level 1.9 Total Bilirubin 0.5 Direct Bilirubin 0.00 Indirect Bilirubin 0.5 Aspartate Amino Transf (AST/SGOT) 174 #H Alanine Aminotransferase (ALT/SGPT) 128 H Alkaline Phosphatase 54 Total Protein 6.0 L Albumin 3.2 L Globulin 2.80 Albumin/Globulin Ratio 1.14 Triglycerides Level 126 Cholesterol Level 150 LDL Cholesterol, Calculated 98 HDL Cholesterol 27 L Cholesterol/HDL Ratio 5.5 Thyroid Stimulating Hormone (TSH) 4.420 Vancomycin Level Trough 8.3 L Subjective 24 Hr Interval Summary Free Text/Dictation Still reports having pain on right buttock area but better. No other specific complaints. Exam/Review of Systems Exam Vitals Vital Signs Date Temp Pulse Resp B/P (MAP) Pulse Ox O2 O2 Flow FiO2 Time Delivery Rate 09/24/18 97.8 67 18 107/63 96 08:02 (78) 09/23/18 Room Air 14:37 Intake and Output 09/23/18 09/23/18 09/24/18 1515:00 23:00 07:00 IntakeIntake Total 610 ml 490 ml 368 ml BalanceBalance 610 ml 490 ml 368 ml Exam Constitutional: alert, oriented Psych: nl mood/affect Head: normocephalic Neck: supple, non-tender Respiratory: clear to auscultation Cardiovascular: regular rate and rhythm Gastrointestinal: soft, non-tender Neurological: DRAINAGE DESIGN COORDINATOR II-XII intact, nl mental status, nl speech Skin: other (right buttock skin tear and redness/swelling ) Results Results 24hrs Laboratory Tests Test 09/24/18 01:30 09/24/18 04:57 Urine Opiates Screen POSITIVE Urine Barbiturates NEGATIVE Urine Amphetamines Screen NEGATIVE Urine Benzodiazepines Screen NEGATIVE Urine Cocaine Screen NEGATIVE Urine Cannabinoids NEGATIVE White Blood Count 5.7 Red Blood Count 4.11 L Hemoglobin 12.1 L Hematocrit 35.4 L Mean Corpuscular Volume 86.1 Mean Corpuscular Hemoglobin 29.4 Mean Corpuscular Hemoglobin Concent 34.2 Red Cell Distribution Width 13.2 Platelet Count 201 Mean Platelet Volume 10.1 Immature Granulocytes % 0.200 Neutrophils % 53.7 Lymphocytes % 34.1 Monocytes % 8.1 Eosinophils % 3.7 Basophils % 0.2 Nucleated Red Blood Cells % 0.0 Immature Granulocytes # 0.010 Neutrophils # 3.0 Lymphocytes # 1.9 Monocytes # 0.5 Eosinophils # 0.2 Basophils # 0.0 Nucleated Red Blood Cells # 0.0 Sodium Level 140 Potassium Level 3.6 Chloride Level 107 Carbon Dioxide Level 26 Anion Gap 7 Blood Urea Nitrogen 9 # Creatinine 0.61 Est Glomerular Filtrat Rate mL/min > 60 Glucose Level 97 Hemoglobin A1c 5.0 Calcium Level 8.1 L Magnesium Level 1.9 Total Bilirubin 0.5 Direct Bilirubin 0.00 Indirect Bilirubin 0.5 Aspartate Amino Transf (AST/SGOT) 174 #H Alanine Aminotransferase (ALT/SGPT) 128 H Alkaline Phosphatase 54 Total Protein 6.0 L Albumin 3.2 L Globulin 2.80 Albumin/Globulin Ratio 1.14 Triglycerides Level 126 Cholesterol Level 150 LDL Cholesterol, Calculated 98 HDL Cholesterol 27 L Cholesterol/HDL Ratio 5.5 Thyroid Stimulating Hormone (TSH) 4.420 Vancomycin Level Trough 8.3 L Medications Medication Current Medications Vancomycin HCl (Vanco Iv Per Pharmacy) VANCOMYCIN PER PHARMACY PER PROTOCOL XX ; Start 09/23/18 at 01:00 IV Flush (NS 3 ml) 3 ml PER PROTOCOL IV ; Start 09/23/18 at 01:00 Ondansetron HCl (Zofran Inj) 4 mg Q6H PRN IV NAUSEA/VOMITING; Start 09/23/18 at 01:00 Acetaminophen (Tylenol Tab) 650 mg Q6H PRN PO .PAIN 1-3 OR TEMP Last administered on 09/23/18at 11:45; Admin Dose 650 MG; Start 09/23/18 at 01:00 Acetaminophen/ Hydrocodone Bitart ([place] (5/325)) 1 tab Q6H PRN PO .MOD PAIN 4- 6 Last administered on 09/24/18at 11:33; Admin Dose 1 TAB; Start 09/23/18 at 01:00 Docusate Sodium (Colace) 100 mg Q12H PRN PO .CONSTIPATION; Start 09/23/18 at 01:00 Bisacodyl (Dulcolax) 5 mg DAILY PRN PO .CONSTIPATION; Start 09/23/18 at 01:00 Vancomycin HCl 1.25 gm/Sodium Chloride 250 ml @ 83.333 mls/ hr Q8H IVPB ; Start 09/24/18 at 14:00 GUSTAVO BURNS NP Sep 24, 2018 13:59
[2018-09-24] MEDS: VANCOMYCIN HCL 1.25 GM in SOD CHLORIDE 0.9% 250 ML IVPB SCH ×2 (14:13→22:11)
[2018-09-24 14:15] VITALS: BP 97/52; PULSE 73; RESP 18
--- NOTE | 2018-09-24 15:14 | CONS ---
Assessment/Plan Assessment/Plan Hospital Course (Demo Recall) Patient is awake feels better no fevers overnight. Blood cultures negative. He is on IV vancomycin. WBC 5.7 no shift no bands BUN 9 creatinine 0.61 Physical examination this is well-developed well-nourished middle-aged man who is alert in no distress. Head atraumatic normocephalic neck is supple chest rise symmetrical breath sounds clear heart S1-S2 abdomen soft bowel sounds present extremities without cyanosis Assessment: 1. Right buttock cellulitis 2. Homelessness Plan: Patient remains stable, will check MRSA swab, continue abx Consultation Date/Type/Reason Admit Date/Time Sep 22, 2018 at 23:35 Initial Consult Date Type of Consult id Date/Time of Note DATE: 09/24/18 TIME: 15:13 Exam/Review of Systems Exam Vitals Vital Signs Date Temp Pulse Resp B/P (MAP) Pulse Ox O2 O2 Flow FiO2 Time Delivery Rate 09/24/18 99.4 73 18 97/52 (67) 96 14:15 09/23/18 Room Air 14:37 Intake and Output 09/23/18 09/23/18 09/24/18 1515:00 23:00 07:00 IntakeIntake Total 610 ml 490 ml 368 ml BalanceBalance 610 ml 490 ml 368 ml Results Result Diagram: 09/24/18 0457 09/24/18 0457 Results 24hrs Laboratory Tests Test 09/24/18 01:30 09/24/18 04:57 Urine Opiates Screen POSITIVE Urine Barbiturates NEGATIVE Urine Amphetamines Screen NEGATIVE Urine Benzodiazepines Screen NEGATIVE Urine Cocaine Screen NEGATIVE Urine Cannabinoids NEGATIVE White Blood Count 5.7 Red Blood Count 4.11 L Hemoglobin 12.1 L Hematocrit 35.4 L Mean Corpuscular Volume 86.1 Mean Corpuscular Hemoglobin 29.4 Mean Corpuscular Hemoglobin Concent 34.2 Red Cell Distribution Width 13.2 Platelet Count 201 Mean Platelet Volume 10.1 Immature Granulocytes % 0.200 Neutrophils % 53.7 Lymphocytes % 34.1 Monocytes % 8.1 Eosinophils % 3.7 Basophils % 0.2 Nucleated Red Blood Cells % 0.0 Immature Granulocytes # 0.010 Neutrophils # 3.0 Lymphocytes # 1.9 Monocytes # 0.5 Eosinophils # 0.2 Basophils # 0.0 Nucleated Red Blood Cells # 0.0 Sodium Level 140 Potassium Level 3.6 Chloride Level 107 Carbon Dioxide Level 26 Anion Gap 7 Blood Urea Nitrogen 9 # Creatinine 0.61 Est Glomerular Filtrat Rate mL/min > 60 Glucose Level 97 Hemoglobin A1c 5.0 Calcium Level 8.1 L Magnesium Level 1.9 Total Bilirubin 0.5 Direct Bilirubin 0.00 Indirect Bilirubin 0.5 Aspartate Amino Transf (AST/SGOT) 174 #H Alanine Aminotransferase (ALT/SGPT) 128 H Alkaline Phosphatase 54 Total Protein 6.0 L Albumin 3.2 L Globulin 2.80 Albumin/Globulin Ratio 1.14 Triglycerides Level 126 Cholesterol Level 150 LDL Cholesterol, Calculated 98 HDL Cholesterol 27 L Cholesterol/HDL Ratio 5.5 Thyroid Stimulating Hormone (TSH) 4.420 Vancomycin Level Trough 8.3 L Medications Medication Current Medications Vancomycin HCl (Vanco Iv Per Pharmacy) VANCOMYCIN PER PHARMACY PER PROTOCOL XX ; Start 09/23/18 at 01:00 IV Flush (NS 3 ml) 3 ml PER PROTOCOL IV ; Start 09/23/18 at 01:00 Ondansetron HCl (Zofran Inj) 4 mg Q6H PRN IV NAUSEA/VOMITING; Start 09/23/18 at 01:00 Acetaminophen (Tylenol Tab) 650 mg Q6H PRN PO .PAIN 1-3 OR TEMP Last administered on 09/23/18at 11:45; Admin Dose 650 MG; Start 09/23/18 at 01:00 Acetaminophen/ Hydrocodone Bitart ([place] (5/325)) 1 tab Q6H PRN PO .MOD PAIN 4- 6 Last administered on 09/24/18at 11:33; Admin Dose 1 TAB; Start 09/23/18 at 01:00 Docusate Sodium (Colace) 100 mg Q12H PRN PO .CONSTIPATION; Start 09/23/18 at 01:00 Bisacodyl (Dulcolax) 5 mg DAILY PRN PO .CONSTIPATION; Start 09/23/18 at 01:00 Vancomycin HCl 1.25 gm/Sodium Chloride 250 ml @ 83.333 mls/ hr Q8H IVPB Last administered on 09/24/18at 14:13; Admin Dose 83.333 MLS/HR; Start 09/24/18 at 14:00 FREDDIE SOFIA NP Sep 24, 2018 15:14
[2018-09-24] MEDS: ACETAMINOPHEN 325 MG TAB PO PRN (17:02)
[2018-09-24 19:46] VITALS: BP 117/75; PULSE 73; RESP 20
[2018-09-25] MEDS: SILVER SULFADIAZINE 1% 25 GM CR TOP SCH ×4 (00:15→21:00)
[2018-09-25] MEDS: HYDROCODONE/APAP (5/325) TAB PO PRN ×3 (00:22→14:54)
[2018-09-25] MEDS ORDERED: SILVER SULFADIAZINE 1% 25 GM CR TOP PRN (00:30)
[2018-09-25 01:32] VITALS: BP 106/65; PULSE 63; RESP 20
[2018-09-25] MEDS: VANCOMYCIN HCL 1.25 GM in SOD CHLORIDE 0.9% 250 ML IVPB SCH ×3 (05:36→22:28)
[2018-09-25] MEDS: ACETAMINOPHEN 325 MG TAB PO PRN ×3 (05:36→19:54)
[2018-09-25 07:31] VITALS: BP 105/65; PULSE 57; RESP 18
[2018-09-25] MEDS ORDERED: HYDR-3601 PO (09:51)
[2018-09-25] MEDS ORDERED: SULF1TAB31 PO (09:51)
[2018-09-25] MEDS ORDERED: SACC250C PO (09:51)
[2018-09-25] MEDS ORDERED: SILV480G2 TP (09:51)
--- NOTE | 2018-09-25 09:54 | PDOCDIS ---
Discharge Instructions DIAGNOSIS Discharge Diagnosis 1. Buttock Cellulitis. 2. Transaminitis. 3. Anemia. 4. Homeless status CONDITION [id number] Patient Condition: [id number] Stable FOLLOW UP/APPOINTMENTS Follow-up Plan 1. Follow up with your primary care provider in one week GUSTAVO BURNS NP Sep 25, 2018 09:54
--- NOTE | 2018-09-25 10:42 | CONS ---
Assessment/Plan Assessment/Plan Hospital Course (Demo Recall) mo events, looks comfortable, no fever s Physical examination this is well-developed well-nourished middle-aged man who is alert in no distress. Head atraumatic normocephalic neck is supple chest rise symmetrical breath sounds clear heart S1-S2 abdomen soft bowel sounds present extremities without cyanosis Assessment: 1. Right buttock cellulitis 2. Homelessness Plan: Patient remains stable, anticipate dc on oral Bactrim Consultation Date/Type/Reason Admit Date/Time Sep 22, 2018 at 23:35 Initial Consult Date Type of Consult id Date/Time of Note DATE: 09/25/18 TIME: 10:41 Exam/Review of Systems Exam Vitals Vital Signs Date Temp Pulse Resp B/P (MAP) Pulse Ox O2 O2 Flow FiO2 Time Delivery Rate 09/25/18 98.6 57 18 105/65 95 Room Air 07:31 (78) Intake and Output 09/24/18 09/24/18 09/25/18 1515:00 23:00 07:00 IntakeIntake Total 450 ml 650 ml 970 ml BalanceBalance 450 ml 650 ml 970 ml Results Result Diagram: 09/24/18 0457 09/24/18 0457 Medications Medication Current Medications Vancomycin HCl (Vanco Iv Per Pharmacy) VANCOMYCIN PER PHARMACY PER PROTOCOL XX ; Start 09/23/18 at 01:00 IV Flush (NS 3 ml) 3 ml PER PROTOCOL IV ; Start 09/23/18 at 01:00 Ondansetron HCl (Zofran Inj) 4 mg Q6H PRN IV NAUSEA/VOMITING; Start 09/23/18 at 01:00 Acetaminophen (Tylenol Tab) 650 mg Q6H PRN PO .PAIN 1-3 OR TEMP Last administered on 09/25/18at 05:36; Admin Dose 650 MG; Start 09/23/18 at 01:00 Acetaminophen/ Hydrocodone Bitart ([place] (5/325)) 1 tab Q6H PRN PO .MOD PAIN 4- 6 Last administered on 09/25/18at 07:37; Admin Dose 1 TAB; Start 09/23/18 at 01:00 Docusate Sodium (Colace) 100 mg Q12H PRN PO .CONSTIPATION; Start 09/23/18 at 01: 00 Bisacodyl (Dulcolax) 5 mg DAILY PRN PO .CONSTIPATION; Start 09/23/18 at 01:00 Vancomycin HCl 1.25 gm/Sodium Chloride 250 ml @ 83.333 mls/ hr Q8H IVPB Last administered on 09/25/18at 05:36; Admin Dose 83.333 MLS/HR; Start 09/24/18 at 14:00 Silver Sulfadiazine (Thermazene 1% 25 Gm) 1 applic DAILY TOP Last administered on 09/25/18at 00:25; Admin Dose 1 APPLIC; Start 09/25/18 at 00:15 Silver Sulfadiazine (Thermazene 1% 25 Gm) 1 applic PRN PRN TOP WOUND; Start 09/25/18 at 00:30 FREDDIE SOFIA NP Sep 25, 2018 10:42
[2018-09-25 15:15] VITALS: BP 111/66; PULSE 73; RESP 18
[2018-09-25 20:00] VITALS: BP 115/67; PULSE 76; RESP 1; RESP 19
--- NOTE | 2018-09-25 20:00 | PN ---
Date/Time of Note Date/Time of Note DATE: 09/25/18 TIME: 19:57 Assessment/Plan VTE Prophylaxis Risk score (from Ns)>0 risk: 1 SCD applied (from Ns): Yes Pharmacological prophylaxis: NA/contraindicated Pharm contraindication: low risk/ambulating Lines/Catheters IV C[facility]from [facility] Peripheral IV Assessment/Plan Hospital Course Assessment/Plan: 1. Buttock Cellulitis. - continue on abx. - CT of the pelvis was performed that did not show any signs of underlying abscess. - Patient reportedly did not receive abx from his previous hospital. gang worker following 2. Transaminitis. - Monitor trend. Patient noted with Hep Bs antibody (+) 3. Anemia. - Iron panel pending. Monitor H&H 4. Homeless status -gang worker following Disposition plan. Awaiting patient to receive abx regimen prior to d.c. plan for d/c to detention in AM Discussed POC with Dr. Osman Result Diagram: 09/24/1845609/24/18456 Subjective 24 Hr Interval Summary Free Text/Dictation no s/s of distress. reports less pain on buttock area Exam/Review of Systems Exam Vitals Vital Signs Date Temp Pulse Resp B/P (MAP) Pulse Ox O2 O2 Flow FiO2 Time Delivery Rate 09/25/18 98.8 73 18 111/66 97 Room Air 15:15 (81) Intake and Output 09/24/18 09/24/18 09/25/18 1515:00 23:00 07:00 IntakeIntake Total 450 ml 650 ml 970 ml BalanceBalance 450 ml 650 ml 970 ml Exam Constitutional: alert, oriented Psych: nl mood/affect Head: normocephalic Neck: supple, non-tender Respiratory: clear to auscultation Cardiovascular: regular rate and rhythm Gastrointestinal: soft, non-tender Neurological: EARLY BREASTFEEDING CARE SPECIALIST II-XII intact, nl mental status, nl speech Skin: other (right buttock skin tear and redness) Medications Medication Current Medications Vancomycin HCl (Vanco Iv Per Pharmacy) VANCOMYCIN PER PHARMACY PER PROTOCOL XX ; Start 09/23/18 at 01:00 IV Flush (NS 3 ml) 3 ml PER PROTOCOL IV ; Start 09/23/18 at 01:00 Ondansetron HCl (Zofran Inj) 4 mg Q6H PRN IV NAUSEA/VOMITING; Start 09/23/18 at 01:00 Acetaminophen (Tylenol Tab) 650 mg Q6H PRN PO .PAIN 1-3 OR TEMP Last administered on 09/25/18at 19:54; Admin Dose 650 MG; Start 09/23/18 at 01:00 Acetaminophen/ Hydrocodone Bitart ([place] (5/325)) 1 tab Q6H PRN PO .MOD PAIN 4- 6 Last administered on 09/25/18at 14:54; Admin Dose 1 TAB; Start 09/23/18 at 01:00 Docusate Sodium (Colace) 100 mg Q12H PRN PO .CONSTIPATION; Start 09/23/18 at 01:00 Bisacodyl (Dulcolax) 5 mg DAILY PRN PO .CONSTIPATION; Start 09/23/18 at 01:00 Vancomycin HCl 1.25 gm/Sodium Chloride 250 ml @ 83.333 mls/ hr Q8H IVPB Last administered on 09/25/18at 14:49; Admin Dose 83.333 MLS/HR; Start 09/24/18 at 14:00 Silver Sulfadiazine (Thermazene 1% 25 Gm) 1 applic DAILY TOP Last administered on 09/25/18at 00:25; Admin Dose 1 APPLIC; Start 09/25/18 at 00:15 Silver Sulfadiazine (Thermazene 1% 25 Gm) 1 applic PRN PRN TOP WOUND; Start 09/25/18 at 00:30 Miscellaneous Information (*Rx Drug Level Order Reminder*) VANCO TR LEVEL TONIGHT ... 2100 ONCE XX ; Start 09/25/18 at 21:00; Stop 09/25/18 at 21:01 GUSTAVO BUNRS NP Sep 25, 2018 20:00
[2018-09-26] MEDS ORDERED: CLINDAMYCIN 300 MG CAP PO SCH
[2018-09-26 02:00] VITALS: BP 108/66; PULSE 60; RESP 18
[2018-09-26] MEDS: HYDROCODONE/APAP (5/325) TAB PO PRN (05:23)
[2018-09-26] MEDS: VANCOMYCIN HCL 1.25 GM in SOD CHLORIDE 0.9% 250 ML IVPB SCH (05:24)
[2018-09-26 07:51] VITALS: BP 115/78; PULSE 70; RESP 18
[2018-09-26] MEDS ORDERED: CLIN300C10 PO (08:30)
[2018-09-26] MEDS: SILVER SULFADIAZINE 1% 25 GM CR TOP SCH (12:01)
--- NOTE | 2018-09-26 12:43 | DS ---
Date/Time of Note Date/Time of Note DATE: 09/26/18 TIME: 12:43 Discharge Summary Admission/Discharge Info Admit Date/Time Sep 22, 2018 at 23:35 Discharge Date/Time Sep 26, 2018 at 12:20 Discharge Diagnosis 1. Buttock Cellulitis. 2. Transaminitis. 3. Anemia. 4. Homeless status Patient Condition: Stable Hospital Course This is a 38-year-old male who is homeless who came to the hospital due to reports of swelling and pain on right buttocks for 2 days duration. He initially went to [facility] 1 day prior to this admission and was given antibiotics but was not able to get them due to being homeless. He persisted with pain and as such was brought to [facility]. Patient was noted with right buttock cellulitis. We did get ID consult who placed him on appropriate antibiotics as well as got in wound care consultation as well. CT scan of the pelvis was done at previous hospital that showed no underlying abscess. He was optimized medically. He was noted with tendinitis with hepatitis B antibody positive. He was advised outpatient follow-up with this with his primary doctor. We also got a secondary social studies teacher to follow the patient due to his home status who did help refer the patient to prison services. After discussion with care team we were able to provide the patient with antibiotic regimen prior to his discharge. During his course of stay he did improve. The plan of care was discussed with the patient and he verbalizes understanding. On the day of discharge patient was in stable condition Discussed POC with Dr. Osman [facility]3] Active Scripts Clindamycin Hcl* (Clindamycin Hcl*) 300 Mg Capsule, 300 MG PO Q8, #21 CAP Prov:GUSTAVO BURNS NP 09/26/18 Saccharomyces Boulardii* (Florastor*) 250 Mg Cap, 500 MG PO BID, #20 CAP Prov:REGGUSTAVO PAEZ MACHINIST 2ND SHIFT 09/25/18 Silver (Silvasorb) 480 Ml Gel..ml., 480 ML TP DAILY, #1 TUB Prov:GUSTAVO BURNS NP 09/25/18 Hydrocodone Bit-Acetaminophen (Hydrocodone Bit-APAP) 5-325MG Tablet, 1 TAB PO Q6H PRN for .MOD PAIN 4-6, #15 TAB Prov:GUSTAVO BURNS MACHINIST 2ND SHIFT 09/25/18 Ibuprofen* (Motrin*) 600 Mg Tab, 600 MG PO Q6, #30 TAB Prov:NARESH HAYES PA-C 09/22/18 Discontinued Scripts Clindamycin Hcl* (Clindamycin Hcl*) 300 Mg Capsule, 300 MG PO TID for 10 Days, CAP Prov:NARESH HAYES PA-C 09/22/18 Follow-up Plan 1. Follow up with your primary care provider in one week Primary Care Provider Care Physician No Primary Time spent on discharge: > 30 minutes Pending Labs Laboratory Tests Test 09/25/18 21:11 Vancomycin Level Trough 12.3 ug/ml (10.0-20.0) GUSTAVO BURNS NP Sep 26, 2018 12:43
== END 2018-09-26 12:20 | disposition home or self-care (01) | DRG 603 ==
LOC: FTE 20:08 → 2NE 23:35
PROVIDERS: ADMIT Family Medicine; ATTEND Family Medicine
DX: L03.317 Cellulitis of buttock (principal); D64.9 Anemia, unspecified; Z59.0 Homelessness; R74.0 Nonspecific elevation of levels of transaminase and lactic acid dehydrogenase [LDH]
CPT/HCPCS: 36415; 72193; 76705; 80053; 80061; 80202; 80307; 83036; 83735; 84443; 85025; 86692; 86704; 86706; 86709; 86803; 87070; 87081; 87340; 96374; 96375; J1885; J2543; J3370; J7030; J7050; Q9967

== ENCOUNTER 2018-10-07 20:16 | Emergency (ER) | payer SELFPAY ==
[~2018-10-07] VITALS: Ht 170.2 cm; Wt 88.0 kg
[~2018-10-07 20:16] MED LIST: CLIN300C10 PO; HYDR-3601 PO; IBUP-1542 PO; SACC250C PO; SILV480G2 TP
[2018-10-07 20:19] VITALS: Ht 170.2 cm; Wt 88.0 kg
[2018-10-07] MEDS ORDERED: LOPE1LIQ32 PO (22:24)
[2018-10-07] MEDS ORDERED: KETOROLAC 30 MG INJ IM STA (22:26)
[2018-10-07 22:59] VITALS: BP 126/88; PULSE 75; RESP 18
--- NOTE | 2018-10-08 00:59 | ERD ---
ER Documentation Chief Complaint Chief Complaint R LEG WOUND HPI 38-year-old male presented to ED for wound check on right leg. Patient is also complaining about current antibiotics that he is on with side effect of diarrhea. Patient denies any shortness of breath chest pain dizziness lightheadedness nausea vomiting. Patient's vitals are all within normal limits. ROS All systems reviewed and are negative except as per history of present illness. Medications Home Meds Active Scripts Loperamide Hcl (Imodium A-D) 1 Mg/7.5 Ml Liquid, 1 MG PO QAM for 7 Days, ML Prov:TREY RAINES PA-C 10/07/18 Clindamycin Hcl* (Clindamycin Hcl*) 300 Mg Capsule, 300 MG PO Q8, #21 CAP Prov:GUSTAVO BURNS NP 09/26/18 Saccharomyces Boulardii* (Florastor*) 250 Mg Cap, 500 MG PO BID, #20 CAP Prov:GUSTAVO BURNS NP 09/25/18 Silver (Silvasorb) 480 Ml Gel..ml., 480 ML TP DAILY, #1 TUB Prov:GUSTAVO BURNS NP 09/25/18 Hydrocodone Bit-Acetaminophen (Hydrocodone Bit-APAP) 5-325MG Tablet, 1 TAB PO Q6H PRN for .MOD PAIN 4-6, #15 TAB Prov:GUSTAVO BURNS NP 09/25/18 Ibuprofen* (Motrin*) 600 Mg Tab, 600 MG PO Q6, #30 TAB Prov:NARESH HAYES PA-C 09/22/18 Allergies Allergies: Coded Allergies: diphenhydramine (Verified Allergy, Unknown, 09/22/18) PMhx/Soc Medical and Surgical Hx: pt denies Medical Hx, pt denies Surgical Hx History of Surgery: No Anesthesia Reaction: No Hx Neurological Disorder: No Hx Respiratory Disorders: No Hx Cardiac Disorders: No Hx Psychiatric Problems: No Hx Miscellaneous Medical Probl: No Hx Alcohol Use: No Hx Substance Use: No Hx Tobacco Use: No Smoking Status: Never smoker FmHx Family History: No diabetes, No coronary disease, No other Physical Exam Vitals Vital Signs Date Temp Pulse Resp B/P (MAP) Pulse Ox O2 O2 Flow FiO2 Time Delivery Rate 10/07/18 98.7 75 18 126/88 96 Room Air 22:59 (101) 10/07/18 97.9 84 18 125/60 96 20:19 (81) Physical Exam Const: No acute distress Head: Atraumatic Eyes: Normal Conjunctiva ENT: Normal External Ears, Nose and Mouth. Neck: Full range of motion. No meningismus. Resp: Clear to auscultation bilaterally Cardio: Regular rate and rhythm, no murmurs Abd: Soft, non tender, non distended. Normal bowel sounds Skin: Well-healing wound on the right anterior aspect of lower thigh. No signs of pus, drainage, streaking Back: No midline or flank tenderness Ext: No cyanosis, or edema Neur: Awake and alert Psych: Normal Mood and Affect Results 24 hrs Current Medications Medications Dose Sig/Lopez Start Time Status Last (Trade) Ordered Route PRN Stop Time Admin Dose Reason Admin Ketorolac 30 mg ONCE STAT 10/07/18 DC 10/07/18 Tromethamine IM 22:26 23:12 (Toradol) 10/07/18 22:27 Procedures/MDM Medications given in ER: Toradol Patient tolerated medication well with no adverse reactions. Patient reported improvement in pain. Medical decision makin-year-old male presented to ED for a wound check on his right anterior thigh. The wound appears to be healing nicely no signs of pus drainage or erythematous streaking. Patient is afebrile and states the wound feels a little better. The patient states though he does have some pain. Patient was given Toradol injection for pain. Patient has some concerns because he has had some episodes of diarrhea since being on the antibiotics. Patient is currently taking clindamycin. When I inquired about the diarrhea the patient states he is only had 2 episodes. I advised the patient that he should take a probiotic with this medication. I am sending the patient home with Imodium to help with diarrhea. I advised the patient that if the diarrhea worsens to return to ER immediately. At this time I have low suspicion for C. difficile, sepsis, compartment syndrome, abscess, osteomyelitis. On reevaluation of the patient patient states that the Toradol has helped with the pain and now rates the pain a 1 out of 10. I advised patient to keep taking medication as instructed to follow-up with his primary care provider in 1 to 2 days regarding this visit. Advised the patient to keep the wound clean and if the wound worsens to return the ER for another wound check. The patient is in agreement to the treatment plan and had no further questions upon discharge Prescription for home: Imodium I have discussed with the patient proper use and common side effects to expert with the medication . I advised the patient/family to speak with the pharmacist dispensing the medication to be advised of any potential drug interactions with other medication or supplements they may be taking. Discharge: At this time, patient is stable for discharge and outpatient management. I have instructed the patient to follow-up with his\her primary care physician in 1 to 2 days. I have discussed with the patient the possibility of needing to see a specialist for further work-up and imaging studies if symptoms persist. I have instructed the patient to promptly return to the ER for any new or worsening symptoms including increased pain, fever, nausea, vomiting, weakness or LOC. The patient and\or family expressed understanding of and agreement with this plan. All questions were answered. Home care instructions were provided. Disclaimer: Inadvertent spelling and grammatical errors are likely due to EHR\dictation software use and do not reflect on the overall quality of patient care. Also, please note that the electronic time recorded on the note does not necessarily reflect the actual time of the patient encounter. Departure Diagnosis: Primary Impression: Visit for wound check Additional Impression: Diarrhea Diarrhea type: unspecified type Qualified Codes: R19.7 - Diarrhea, unspecified Condition: Good Patient Instructions: Wound Care, Treating Diarrhea Additional Instructions: Call your primary care doctor TOMORROW for an appointment during the next 1-2 days.See the doctor sooner or return here if your condition worsens before your appointment time. TREY RAINES PA-C Oct 08, 2018 00:59
== END 2018-10-07 23:15 | disposition home or self-care (01) ==
LOC: FTE 20:16
DX: Z48.01 Encounter for change or removal of surgical wound dressing (principal); R19.7 Diarrhea, unspecified
CPT/HCPCS: 96372; 99284; J1885

== ENCOUNTER 2018-10-27 17:06 | Emergency (ER) | payer MEDICAID ==
[~2018-10-27] VITALS: Ht 172.7 cm; Wt 90.4 kg
[~2018-10-27 17:06] MED LIST changes: +LEVO5TAB28 PO; +LOPE1LIQ32 PO; +LOPE2CAP PO
[2018-10-27 17:10] VITALS: BP 107/75; PULSE 74; RESP 20; Ht 172.7 cm; Wt 90.4 kg
--- NOTE | 2018-10-27 17:41 | ERD ---
ER Documentation Chief Complaint Chief Complaint Pt reports diarrhea after taking abx for "bug bites" HPI 38-year-old male presents ED complaining of diarrhea x1 week. He states that he was taking clindamycin for 3 weeks for bug bites on his skin. He stopped taking it almost a week ago but has been having significant diarrhea which occurs about 20 minutes after he eats. He was told to come to the ED to get tested for C. difficile by a friend. He is here to get tested for C. difficile for stool sample. He denies any fevers or chills. He denies any abdominal tenderness. ROS All systems reviewed and are negative except as per history of present illness. Medications Home Meds Active Scripts Levocetirizine Dihydrochloride (Xyzal) 5 Mg Tablet, 5 MG PO QPM, #30 TAB Prov:MAMI BRIONES PA-C 10/27/18 Loperamide Hcl* (Imodium*) 2 Mg Capsule, 2 MG PO .AFTER EA LOOSE BM PRN for DIARRHEA, #20 TAB Prov:MAMI BRIONES PA-C 10/27/18 Loperamide Hcl (Imodium A-D) 1 Mg/7.5 Ml Liquid, 1 MG PO QAM for 7 Days, ML Prov:TREY RAINES PA-C 10/07/18 Clindamycin Hcl* (Clindamycin Hcl*) 300 Mg Capsule, 300 MG PO Q8, #21 CAP Prov:GUSTAVO BURNS NP 09/26/18 Saccharomyces Boulardii* (Florastor*) 250 Mg Cap, 500 MG PO BID, #20 CAP Prov:GUSTAVO BURNS NP 09/25/18 Silver (Silvasorb) 480 Ml Gel..ml., 480 ML TP DAILY, #1 TUB Prov:GUSTAVO BURNS NP 09/25/18 Hydrocodone Bit-Acetaminophen (Hydrocodone Bit-APAP) 5-325MG Tablet, 1 TAB PO Q6H PRN for .MOD PAIN 4-6, #15 TAB Prov:GUSTAVO BURNS NP 09/25/18 Ibuprofen* (Motrin*) 600 Mg Tab, 600 MG PO Q6, #30 TAB Prov:NARESH HAYES PA-C 09/22/18 Allergies Allergies: Coded Allergies: diphenhydramine (Verified Allergy, Unknown, 09/22/18) PMhx/Soc History of Surgery: No Anesthesia Reaction: No Hx Neurological Disorder: No Hx Respiratory Disorders: No Hx Cardiac Disorders: No Hx Psychiatric Problems: No Hx Miscellaneous Medical Probl: No Hx Alcohol Use: No Hx Substance Use: No Hx Tobacco Use: No Smoking Status: Never smoker FmHx Family History: No diabetes Physical Exam Vitals Vital Signs Date Temp Pulse Resp B/P (MAP) Pulse Ox O2 O2 Flow FiO2 Time Delivery Rate 10/27/18 99.1 74 20 107/75 97 17:10 (86) Physical Exam Const: No acute distress Head: Atraumatic Resp: Clear to auscultation bilaterally Cardio: Regular rate and rhythm Abd: Soft, non tender, non distended. Normal bowel sounds Skin: few bug bites on his skin throughout Neur: Awake and alert Psych: Normal Mood and Affect Procedures/MDM ED COURSE: The patient was stable throughout ED course. I kept the patient informed of laboratory and diagnostic imaging results throughout the ED course. PROCEDURES: C.Diff, Stool sample MEDICAL DECISION MAKING: Patient is a 38-year-old male presenting with diarrhea and asking for a stool sample for C. difficile. I have low suspicion for mesenteric ischemia, bowel perforation, diverticulitis, UTI. C. difficile stool sample was done and sent out to the lab. Patient will be called with the results. Vital signs were reviewed. Patient is afebrile. Patient was not hypoxic. Patient was hemodynamically stable. Patient was told to follow up with primary care for further care and management. PRESCRIPTION: Benadryl, Imodium DISCHARGE: At this time, patient is stable for discharge and outpatient management. I have instructed the patient to follow-up with their primary care physician in 1-2 days. I have discussed with the patient the possibility of needing to see a specialist for further workup and imaging studies if symptoms persist. I have instructed the patient to promptly return to the ER for any new or worsening symptoms including increased pain, fever, nausea, vomiting, weakness or LOC. The patient expressed understanding of and agreement with this plan. All questions were answered. Home care instructions were provided. Disclaimer: Inadvertent spelling and grammatical errors are likely due to EHR/dictation software use and do not reflect on the overall quality of patient care. Also, please note that the electronic time recorded on this note does not necessarily reflect the actual time of the patient encounter. Departure Diagnosis: Primary Impression: Diarrhea Diarrhea type: unspecified type Qualified Codes: R19.7 - Diarrhea, unspecified Condition: Fair Patient Instructions: Treating Diarrhea, Self-Care for Vomiting and Diarrhea Referrals: [facility] YOU HAVE RECEIVED A MEDICAL SCREENING EXAM AND THE RESULTS INDICATE THAT YOU DO NOT HAVE A CONDITION THAT REQUIRES URGENT TREATMENT IN THE EMERGENCY DEPARTMENT. FURTHER EVALUATION AND TREATMENT OF YOUR CONDITION CAN WAIT UNTIL YOU ARE SEEN IN YOUR DOCTORS OFFICE WITHIN THE NEXT 1-2 DAYS. IT IS YOUR RESPONSIBILITY TO MAKE AN APPOINTMENT FOR FOLOW-UP CARE. IF YOU HAVE A PRIMARY DOCTOR --you should call your primary doctor and schedule an appointment IF YOU DO NOT HAVE A PRIMARY DOCTOR YOU CAN CALL OUR PHYSICIAN REFERRAL HOTLINE AT IF YOU CAN NOT AFFORD TO SEE A PHYSICIAN YOU CAN CHOSE FROM THE FOLLOWING [facility] [address] [employer] [address] [facility] [address] [facility] [facility] [address] [facility] [address] [facility] [address] [facility] [facility] [address] [facility]. [facility] YOU HAVE RECEIVED A MEDICAL SCREENING EXAM AND THE RESULTS INDICATE THAT YOU DO NOT HAVE A CONDITION THAT REQUIRES URGENT TREATMENT IN THE EMERGENCY DEPARTMENT. FURTHER EVALUATION AND TREATMENT OF YOUR CONDITION CAN WAIT UNTIL YOU ARE SEEN IN YOUR DOCTORS OFFICE WITHIN THE NEXT 1-2 DAYS. IT IS YOUR RESPONSIBILITY TO MAKE AN APPOINTMENT FOR FOLOW-UP CARE. IF YOU HAVE A PRIMARY DOCTOR --you should call your primary doctor and schedule and appointment IF YOU DO NOT HAVE A PRIMARY DOCTOR YOU CAN CALL OUR PHYSICIAN REFERRAL HOTLINE AT . IF YOU CAN NOT AFFORD TO SEE A PHYSICIAN YOU CAN CHOSE FROM THE FOLLOWING [facility]: [facility] [address] [place] [address] [facility] [address] [place] [address] [facility] [address] [place] [address] Additional Instructions: Call your primary care doctor TOMORROW for an appointment during the next 1-2 days.See the doctor sooner or return here if your condition worsens before your appointment time. MAMI BRIONES PA-C Oct 27, 2018 17:41
== END 2018-10-27 17:56 | disposition home or self-care (01) ==
LOC: FTE 17:06
DX: R19.7 Diarrhea, unspecified (principal)
CPT/HCPCS: 87075; 99283

== ENCOUNTER 2018-11-21 14:23 | Emergency (ER) | payer MEDICAID ==
[~2018-11-21] VITALS: Ht 170.2 cm; Wt 88.5 kg
[~2018-11-21 14:23] MED LIST changes: +ACET325T33 PO; +BACL10TA PO; +WALK1EAC23 MC
[2018-11-21 14:27] VITALS: BP 115/81; PULSE 100; RESP 18; Ht 170.2 cm; Wt 88.5 kg
== END 2018-11-21 15:04 | disposition home or self-care (01) ==
LOC: E/R 14:23
DX: M79.605 Pain in left leg (principal); M79.604 Pain in right leg
CPT/HCPCS: 99283